=== PATIENT | male | born 1985 | race Caucasian/White ===

== ENCOUNTER 2024-12-13 13:38 | Emergency (ER) | payer OTHER ==
[~2024-12-13] VITALS: Ht 175.3 cm; Wt 82.3 kg
[2024-12-13] MEDS ORDERED: BUPR1FIL SL (13:55)
[2024-12-13] MEDS ORDERED: IBUP-1506 PO (13:55)
[2024-12-13] MEDS ORDERED: FAMO20 PO (13:55)
[2024-12-13] MEDS ORDERED: NALO4SPR NASAL (13:55)
[2024-12-13 14:31] VITALS: TEMP 98.2
[2024-12-13 15:10] LABS: APPEARANCE,URINE CLEAR (CLEAR); GLUCOSE, URINE (UA) NEGATIVE (NEGATIVE); LEUKOCYTE ESTERASE ,URINE NEGATIVE (NEGATIVE); NITRATE,URINE NEGATIVE (NEGATIVE); OCCULT BLOOD,URINE TRACE (NEGATIVE); SPECIFIC GRAVITIY, URINE 1.018 (1.003-1.030)
[2024-12-13 15:27] LABS: PLATELET COUNT (AUTO) 244 K/uL (150-450); RED BLOOD CELL COUNT(AUTO) 4.87 MIL/uL (4.50-5.90); RED CELL DISTRIBUTION WIDTH 13.4 % (11.5-14.5); WHITE BLOOD COUNT (AUTO) 5.8 K/uL (4.5-11.0)
[2024-12-13] MEDS: SODIUM CHLORIDE 0.9% 1,000 ML IV ONE (15:32)
[2024-12-13 15:37] LABS: CALCIUM, TOTAL 9.4 mg/dL (8.8-10.5); CREATININE 0.77 mg/dL (0.60-1.30); GLOMERULAR FILTR. RATE CALC > 60 mL/min (>60); GLUCOSE,RANDOM 82 mg/dL (70-110); SODIUM SERUM 141 mmol/L (136-145); UREA NITROGEN, BLOOD 14 mg/dL (7-18)
[2024-12-13 15:45] LABS: SQUAMOUS EPITHELIAL CELL,UR Rare /LPF (None Seen)
[2024-12-13] MEDS ORDERED: 0.9% SODIUM CHLORIDE 10 ML SYRINGE IVP ONE (15:46)
[2024-12-13] MEDS ORDERED: SODIUM CHLORIDE 0.9% 100 ML ONE (15:46)
[2024-12-13] MEDS ORDERED: IOHEXOL 350 MG/ML 100 ML VIAL ONE (15:46)
[2024-12-13 18:00] VITALS: BP 128/76; PULSE 50; RESP 13; O2SAT 97
[2024-12-13] MEDS ORDERED: MAGNESIUM HYDROXIDE SUSPENSION 30 ML UDCUP PO PRN (19:30)
[2024-12-13] MEDS ORDERED: BISACODYL 10 MG RECTAL RECTAL SUPPOSITORY PR PRN (19:30)
[2024-12-13] MEDS ORDERED: ONDANSETRON HCL 4 MG/2 ML VIAL IVP PRN (19:30)
[2024-12-13] MEDS ORDERED: ZOLPIDEM TARTRATE 5 MG TABLET PO PRN (19:30)
[2024-12-13] MEDS ORDERED: ACETAMINOPHEN 325 MG TABLET PO PRN (19:30)
[2024-12-13] MEDS ORDERED: DOCUSATE SODIUM 100 MG CAPSULE PO SCH (21:00)
[2024-12-14] MEDS ORDERED: HEPARIN SODIUM,PORCINE 5,000 UNITS/ML VIAL SQ SCH
[2024-12-14] MEDS ORDERED: PANTOPRAZOLE SODIUM 40 MG DR TABLET PO SCH (09:00)
[2024-12-14] MEDS ORDERED: FAMOTIDINE 20 MG TABLET PO SCH (09:00)
[2024-12-14] MEDS ORDERED: BUPRENORPHINE HCL/NALOXONE HCL 2-0.5 MG SUBLINGUAL TABLET SL SCH (09:00)
== END 2024-12-13 20:02 ==
LOC: EMS 13:38 → UNDOADMIN 19:18 → EDH 19:18
DX: K46.9 Unspecified abdominal hernia without obstruction or gangrene (principal); R10.31 Right lower quadrant pain; F41.9 Anxiety disorder, unspecified; F31.9 Bipolar disorder, unspecified; K21.9 Gastro-esophageal reflux disease without esophagitis; F10.90 Alcohol use, unspecified, uncomplicated; F11.90 Opioid use, unspecified, uncomplicated; F15.90 Other stimulant use, unspecified, uncomplicated; Z79.899 Other long term (current) drug therapy; Y90.9 Presence of alcohol in blood, level not specified
CPT/HCPCS: 99285; 74177; 96360; 96361; 80048; 81001; 83690; 85025; 36415; 93005; Q9967; J7030; J7050; G0378